=== PATIENT | female | born 1985 | race Two or more races ===

== ENCOUNTER 2016-12-05 23:24 | Emergency (ER) | payer BC, OTHER ==
[2016-12-05 23:33] VITALS: BP 113/84; PULSE 100; TEMP 98.2; BMI 26.6
--- NOTE | 2016-12-05 23:46 | PDOC ---
History of Present Illness - General Chief Complaint: Chest Pain Stated Complaint: CHEST PAIN Time Seen by Provider: 12/05/16 23:26 History Source: Patient Exam Limitations: No Limitations - History of Present Illness Initial Comments: 12/05/16 23:41 31 y f hx of asthma 2 day hx of constant mid sternal chest pain. non radiated, not excertional. recent minor chest trauma while cheerleading. pain worse at deep breathing and certain movements but able to do yoga and continuing cheerleading. in [place] denies fever. sob. n/v. no cough Past History - Past Medical History Allergies/Adverse Reactions: Allergies Allergy/AdvReac Type Severity Reaction Status Date / Time No Known Allergies Allergy Unverified 12/05/16 23:33 Home Medications: Ambulatory Orders NK [No Known Home Medication] 12/05/16 Asthma: Yes - Psycho/Social/Smoking Cessation Hx Anxiety: No Suicidal Ideation: No Smoking History: Unknown if ever smoked Have you smoked in the past 12 months: No Number of Cigarettes Smoked Daily: 0 Information on smoking cessation initiated: No Hx Alcohol Use: No Drug/Substance Use Hx: No Substance Use Type: None Review of Systems - Review of Systems Able to Perform ROS?: Yes Is the patient limited [place] proficient: No Constitutional: No: Symptoms Reported HEENTM: No: Symptoms Reported Respiratory: No: Symptoms reported Cardiac (ROS): No: Symptoms Reported ABD/GI: No: Symptoms Reported Musculoskeletal: Yes: Symptoms Reported, See HPI All Other Systems: Reviewed and Negative *Physical Exam - Vital Signs Last Vital Signs Temp Pulse Resp BP Pulse Ox 98.2 F 100 H 14 113/84 100 12/05/16 23:26 12/05/16 23:26 12/05/16 23:26 12/05/16 23:26 12/05/16 23:26 - Physical Exam General Appearance: Yes: Nourished, Appropriately Dressed. No: Apparent Distress HEENT: positive: Normal ENT Inspection Neck: positive: Supple. negative: Tender Respiratory/Chest: positive: Chest Tender (mid sternum c/w pain of cc.), Lungs Clear, Normal Breath Sounds. negative: Respiratory Distress Cardiovascular: positive: Regular Rhythm, Regular Rate Gastrointestinal/Abdominal: positive: Soft Neurologic: positive: Fully Oriented, Alert, Normal Mood/Affect, Normal Response , Motor Strength 5/5 *DC/Admit/Observation/Transfer Diagnosis at time of Disposition: Muscular chest pain - Discharge Dispostion Disposition: HOME Condition at time of disposition: Good - Referrals Referrals: Villa Macias MD [Primary Care Provider] - Call tomorrow - Patient Instructions Printed Discharge Instructions: DI for Atypical Chest Pain Additional Instructions: IBUPROFEN 600 MG 3 TIMES A DAY FOR 3 DAYS CALL YOUR DOCTOR IN AM RETURN IF WORSENING OR NEW SYMPTOMS
== END 2016-12-05 23:48 | disposition home or self-care (01) ==
LOC: FER 23:24
DX: R07.89 Other chest pain (principal)
CPT/HCPCS: 99282-25